=== PATIENT | female | born 1960 | race Hispanic/Latino ===

== ENCOUNTER → 2025-01-04 | Outpatient (CLI) | payer OTHER ==
--- NOTE | 2025-01-04 12:56 | HMCIMG ---
DEXA BONE DENSITY SURVEY HISTORY: No additional history given. COMPARISON: None FINDINGS: Bone densitometry study was performed. Bone mineral density of the lumbar spine is 1.039 gram per centimeter square which corresponds to a T score of -0.1 and a Z score of 1.7. Bone mineral density of the left hip is 1.024 grams per centimeter square which corresponds to a T score of 0 point and a Z score of 1.6. IMPRESSION: 1. Normal bone mineral density of the lumbar spine and left hip.
== END | disposition home or self-care (01) ==
LOC: RAH 10:51
PROVIDERS: ATTEND Internal Medicine
DX: M81.0 Age-related osteoporosis without current pathological fracture (principal)
CPT/HCPCS: 77080